=== PATIENT | female | born 2005 | race Caucasian/White ===

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

== ENCOUNTER 2024-05-21 19:32 | Emergency (ER) | payer MEDICAID, OTHER ==
[~2024-05-21] VITALS: Ht 167.6 cm; Wt 47.7 kg
[2024-05-21] MEDS: LIDOcaine 1% 30ml preserv. free vial IJ STA (21:11)
[2024-05-21 21:42] VITALS: BP 122/74; PULSE 70; RESP 18; TEMP 98.4; O2SAT 98
== END 2024-05-21 21:44 | disposition home or self-care (01) ==
LOC: ER 19:32
DX: S61.011A Laceration without foreign body of right thumb without damage to nail, initial encounter (principal); X58.XXXA Exposure to other specified factors, initial encounter; Y93.89 Activity, other specified; Y92.89 Other specified places as the place of occurrence of the external cause; Y99.8 Other external cause status
CPT/HCPCS: 12001; 73130; 99283; A6449